=== PATIENT | male | born 1940 | race Caucasian/White ===

== ENCOUNTER 2018-08-31 17:55 | Emergency (ER) | payer OTHER ==
[~2018-08-31] VITALS: Ht 177.8 cm; Wt 74.8 kg
[2018-08-31] MEDS ORDERED: OMEPRAZOLE 20 M20 M1 PO (18:11)
[2018-08-31] MEDS ORDERED: PAXIL10 MG PO (18:11)
[2018-08-31] MEDS ORDERED: MULTI VITAMIN1 EACH PO (18:11)
[2018-08-31 19:31] LABS: HEMATOCRIT 41.2 % (42.0-52.0); HEMOGLOBIN 14.3 gm/dL (14.0-18.0); MCH 31.5 pg (26.0-34.0); MCHC 34.7 g/dL (28.0-37.0); PLATELET COUNT 182 thou/uL (150-400); RBC 4.52 mil/uL (4.50-6.00); RDW 13.4 % (10.5-14.5); WBC 7.3 thou/uL (4.0-11.0)
[2018-08-31 19:41] LABS: CREATININE 1.2 mg/dL (0.7-1.3)
[2018-08-31 20:09] LABS: ABSOLUTE NEUTROPHILS 5.3 thou/uL (1.4-8.2); ANISOCYTOSIS 1+; POLYCHROMASIA OCCASIONAL
[2018-08-31 20:28] VITALS: BP 161/95
== END 2018-08-31 20:33 | disposition home or self-care (01) ==
LOC: ER 17:55
PROVIDERS: Emergency Medicine
DX: L02.01 Cutaneous abscess of face (principal); K13.0 Diseases of lips; M81.0 Age-related osteoporosis without current pathological fracture; K21.9 Gastro-esophageal reflux disease without esophagitis; Z88.5 Allergy status to narcotic agent; Z88.8 Allergy status to other drugs, medicaments and biological substances

== ENCOUNTER → 2020-07-17 | Outpatient (CLI) | payer OTHER ==
[~2020-07-17] MED LIST: MULTI VITAMIN1 EACH PO; OMEPRAZOLE 20 M20 M1 PO; PAXIL10 MG PO
== END ==
LOC: NUC 08:16
PROVIDERS: ATTEND Internal Medicine
DX: I25.10 Atherosclerotic heart disease of native coronary artery without angina pectoris (principal); I42.8 Other cardiomyopathies; I47.2 Ventricular tachycardia

== ENCOUNTER 2021-01-03 22:12 | Inpatient (IN) | payer OTHER ==
[~2021-01-03] VITALS: Ht 177.8 cm; Wt 70.3 kg
[2021-01-03 22:24] VITALS: BP 148/88
[2021-01-03 22:38] LABS: ABSOLUTE NEUTROPHILS 4.8 thou/uL (1.4-8.2); BASOPHILS 0.6 % (0.0-2.0); EOSINOPHILS 4.7 % (0.0-3.0); HEMATOCRIT 43.2 % (42.0-52.0); HEMOGLOBIN 14.3 gm/dL (14.0-18.0); LYMPHOCYTES 16.3 % (24.0-44.0); MCH 30.9 pg (26.0-34.0); MCHC 33.2 g/dL (28.0-37.0); MCV 93.2 fL (80.0-100.0); MONOCYTES 11.7 % (1.0-8.0); PLATELET COUNT 177 thou/uL (150-400); POLYS 66.7 % (36.0-66.0); RBC 4.64 mil/uL (4.50-6.00); RDW 13.7 % (10.5-14.5); WBC 7.1 thou/uL (4.0-11.0)
[2021-01-03 22:46] LABS: ANION GAP 7 mmol/L (7-16); BUN 14 mg/dL (7-18); CALCIUM 8.5 mg/dL (8.5-10.1); CHLORIDE 104 mmol/L (98-107); CO2 30 mmol/L (21-32); CREATININE 1.1 mg/dL (0.7-1.3); GLUCOSE 101 mg/dL (74-106); POTASSIUM 3.7 mmol/L (3.5-5.1); SODIUM 141 mmol/L (136-145)
[2021-01-03 22:56] LABS: ALBUMIN 3.5 g/dL (3.4-5.0); LIPASE 99 U/L (73-393); SGOT 17 U/L (15-37); SGPT 18 U/L (16-63); TOTAL BILIRUBIN 0.6 mg/dL (0.2-1.0); TROPONIN-I <0.06 ng/mL (<0.06)
[2021-01-03 23:42] LABS: URINE BILIRUBIN NEGATIVE (Negative); URINE BLOOD NEGATIVE (Negative); URINE CLARITY CLEAR; URINE COLOR YELLOW; URINE GLUCOSE-RANDOM* NEGATIVE (Negative); URINE KETONES NEGATIVE (Negative); URINE LEUKOCYTES-REFLEX NEGATIVE (Negative); URINE NITRITE-REFLEX NEGATIVE (Negative); URINE PROTEIN (DIPSTICK) NEGATIVE (Negative); URINE SPECIFIC GRAVITY 1.015 (1.005-1.035); URINE UROBILINOGEN 0.2 E.U./dl (0.2-1.0)
[2021-01-04] MEDS ORDERED: OMEPRAZOLE40 MG PO
[2021-01-04] MEDS ORDERED: PAROXETINE HCL30 MG PO (00:01)
[2021-01-04 05:41] LABS: CHOLESTEROL 109 mg/dL (<200); HDL CHOLESTEROL 55 mg/dL (>40); LDL CHOLESTEROL 36 mg/dL (<100); TRIGLYCERIDE 90 mg/dL (<150); VLDL 18 mg/dL (<40)
[2021-01-04 05:42] LABS: SERUM ASSESSMENT Clear
[2021-01-04 06:07] VITALS: BP 108/57
[2021-01-04 06:32] VITALS: BP 101/56
--- NOTE | 2021-01-04 07:35 | EKG ---
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1940 Requested By: Rick Santos Order Number: [id number] MD: Will Gilmore Measurements Intervals [place] Rate: 79 P: 29 MT: 189 QRS: -16 QRSD: 104 T: 94 QT: 425 QTc: 488 Interpretive Statements Sinus rhythm Atrial premature complexes Probable LVH with secondary repol abnrm Anterior Q waves, possibly due to LVH Compared to ECG 02/11/1997 07:06:00 Atrial premature complex(es) now present Left ventricular hypertrophy now present Q waves now present Sinus bradycardia no longer present Sinus arrhythmia no longer present Electronically Signed On 01-04-2021 7:34:47 [employer] by Will Gilmore [email or web address] <ELECTRONICALLY SIGNED> By: Will Gilmore MD, [facility] 01/04/21 0734 19 19 Will Gilmore MD, [facility] /EPI
[2021-01-04] MEDS ORDERED: ACETAMINOPHEN325 M1 PO (11:32)
[2021-01-04] MEDS ORDERED: PEPCID40 MG PO (11:32)
[2021-01-04] MEDS ORDERED: ASPIR 8181 MG PO (11:32)
[2021-01-04 12:03] VITALS: BP 101/56
[2021-01-04 15:25] VITALS: BP 133/79
--- NOTE | 2021-01-04 16:23 | NUR ---
PT A&OX4, VSS, PAIN IN EPIGASTRIC AREA. PATIENT GIVEN TYLENOL. PATIENT C/O OF NAUSEA START OF SHIFT AND GIVEN ZOFRAN. PATIENT VOMITED AROUND LUNCH TIME, DOCTOR NOTIFIED. PATIENT C/O OF HEARTBURN. PATIENT INSTRUCTED NOT TO DRINK FROM STRAWS TO SEE IF HES TAKEN IN TOO MUCH AIR WHILE DRINKING. PATIENT SR ON MONITOR. NO SIGNS OF DISRESS OBSERVED. WILL CONTINUE TO MONITOR.
[2021-01-04 20:00] VITALS: BP 140/85
--- NOTE | 2021-01-05 01:45 | NUR ---
CARE ASSUMED 1900. PT ALERT AND ORIENTED VITALS STABLE. SR/SB ON THE MONITOR. PT WAS REPORTED TO HAVE ABDOMINAL PAIN. ACTIVE BOWEL SOUNDS AND REBOUND TENDERNESS NOTED ESPECIALLY IN BOTH RIGHT AND LEFT LOWER QUADRANT. PT NPO AWAITING GI CONSULT. PAIN, NAUSEA, OR VOMITING REPORTED . NO SON OR CHEST PAIN. PT IS A STAND BY ASSIST. WILL CONTINUE TO FOLLOW POC.
[2021-01-05 08:16] VITALS: BP 136/84
--- NOTE | 2021-01-05 09:10 | NUR ---
ASSESSMENT: CM REVIEWED CHART AND SPOKE WITH PATIENT. PT WAS ADMITTED DUE TO CHEST PAIN AND WAS RULED OUT. PT REPORTS LIVING IN A HOUSE ALONE. PT STATES HAVING 3 STEPS TO ENTER AND NO STEPS ONCE INSIDE. PT REPORTS BEING FULLY INDEPENDENT WITH ADLS AND AMBULATION. PT STATES HIS SON AND DAUGHTER BOTH LIVE WITHIN 5 MILES OF HIM AND CAN HELP HIM NEEDED. PT REPORTS NO HX OF HH OR SNF. PT IS REPORTING ABDOMINAL PAIN AND AWAITING A GI CONSULT AT THIS TIME. PT DOES NOT ANTICIPATE HAVING ANY NEEDS AT DISCHARGE. CM WILL CONTINUE TO FOLLOW TO ASSIST NEEDED.
[2021-01-05 15:52] VITALS: BP 147/97
--- NOTE | 2021-01-05 16:28 | NUR ---
Assumed pt care this am, Vs stable. No nausea or vomiting noted, was seen by GI, EGD done this am. Started on full liquids and is tolarated well. Was able to work with PT today and is able to be steady on his gait and can ambulate.
[2021-01-05 20:00] VITALS: BP 129/84
--- NOTE | 2021-01-06 06:47 | NUR ---
Assumed pt care at 1900. A/OX4,VSS.Denies pain on assessment. No N/V reported. Pt cleared by pt to be ad ita,yellow socks taken off. Pt ambulating to the bathroom w/o any problems. SA on telemetry,no c/o voiced. Encouraged to call as needed.
[2021-01-06 09:07] VITALS: BP 137/85
[2021-01-06] MEDS ORDERED: PROTONIX 20 MG20 M1 PO (09:26)
--- NOTE | 2021-01-06 10:09 | NUR ---
ENTERED PT. ROOM AT 0924, INTRODUCED ROLE OF OT. PT. DECLINES FORMAL OT RIVKAAL, STATES HE FEELS HE IS AT HIS NORMAL AND HAS BEEN UP AD JENNA SINCE P.Juan TUTTLE YESTERDAY.
--- NOTE | 2021-01-06 11:05 | NUR ---
Assumed pt care this am, vs stable and is stready on his gait and is able to ambulate on his own. Runs sinus arrythmia on the tele. No nausea, vomiting or pain noted. Dc orders given, intructions and medication education givne to pt. IV removed. Awaiting son to garbage pick up man pt.
--- NOTE | 2021-01-08 17:09 | PATH ---
[facility] [address] [place] [address] PATHOLOGY RPT PROCEDURE Name: HILARY MCGHEE Room #: 450-P DIS IN M.R.#: [id number] Admission: 01/04/21 Date of : 36 Discharge: 01/06/21 Report #: [id number] Path Case #: [id number] L[facility] Accession Number: [id number] . 01 Material submitted: . PART A: duodenum - DUODENUM R/O CELIAC PART B: pyloric antrum - ANTRUM R/O EOSINOPHILIC ESOPHAGITIS PART C: esophagus - DISTAL ESOPHAGUS R/O EOSINOPHILIC ESOPHAGITIS. Modifiers: distal PART D: esophagus - MID ESOPHAGUS R/O EOSINOPHILIC ESOPHAGITIS. Modifiers: mid . 01 Clinical history: . CHEST PAIN, N/V GERD, HIATAL HERNIA, GASTRITIS . 02 Diagnosis: A. Small "duodenum", endoscopic biopsy: - Duodenal mucosa without significant pathologic alteration. - Negative for villous blunting, active inflammation, dysplasia, and malignancy. . B. Stomach "antrum", endoscopic biopsy: - Gastric antral and oxyntic mucosa with features of early reactive gastropathy, arising in a background of moderate chronic gastritis. - Negative for active inflammation, intestinal metaplasia, dysplasia, and malignancy. - Negative for Helicobacter pylori. . C. Esophagus "distal", endoscopic biopsy: - Hyperplastic esophageal squamous mucosa with reactive features, suggestive of reflux esophagitis. - Negative for significantly increased eosinophils, intestinal metaplasia, dysplasia, and malignancy. . D. Esophagus "mid", endoscopic biopsy: - Mildly hyperplastic esophageal squamous mucosa with reactive features. - Negative for increased intraepithelial eosinophils, intestinal metaplasia, dysplasia, and malignancy. (MLK:tim; 01/08/2021) QMS 01/08/2021 1632 Local . 02 Electronically signed: . Holger Sarabia MD, Pathologist NPI- [id number] . 01 Gross description: . [facility] [address] [place] [address] PATHOLOGY RPT PROCEDURE Name: HILARY MCGHEE Lorenza Room #: 450-P DIS IN M.R.#: [id number] Admission: 01/04/21 Date of : 36 Discharge: 01/06/21 Report #: [id number] Path Case #: [id number] A. The specimen is received in formalin, labeled "Hilary Mcghee, duodenum, R/O celiac". Received are four segments of pale luna soft tissue ranging in size from 0.2 to 0.3 cm in maximum dimensions. The specimen is submitted entirely in cassette A1. . B. The specimen is received in formalin, labeled "Hilary Taz, biopsy antrum, R/O eosinophilic esophagitis". Received are two segments of pale luna soft tissue ranging in size from 0.3 to 0.5 cm in maximum dimensions. The specimen is submitted entirely in cassette B1. . C. The specimen is received in formalin, labeled "Hilary Townley, distal esophagus, R/O eosinophilic esophagitis". Received are three segments of pale luna soft tissue ranging in size from 0.2 to 0.3 cm in maximum dimensions. The specimen is submitted entirely in cassette C1. . D. The specimen is received in formalin, labeled "Hilary Taz, mid esophagus, R/O eosinophilic esophagitis". Received are two segments of pale luna soft tissue measuring 0.4 cm each in maximum dimensions. The specimen is submitted entirely in cassette D1. (CAA; 01/07/2021) QAC/QAC 01/07/2021 1130 Local . 02 Microscopic: . Immunohistochemical stain results (properly controlled): . Helicobacter pylori (B1) - Negative for organisms. . (MLK:tim; 01/08/2021) . 02 Pathologist provided ICD-10: K29.50, K31.9, K22.9, R11.2, R07.9 . 02 CPT . 376965, 627751, [id number], [id number], [id number] Specimen Comment: A courtesy copy of this report has been sent to [phone], [phone] Specimen Comment: [phone], Specimen Comment: Report sent to ,DR TOLBERT / DR POST Performed at: [address], [place] [id number] MD Karlos Garcia MD Phone: [phone] Performed at: [address] [id number] MD Taylor Orozco MD Phone: [phone]
== END 2021-01-06 11:36 | disposition home or self-care (01) | DRG 392 ==
LOC: ER 22:12 → EROBS 01-04 00:09 → 4W 01-04 00:09
PROVIDERS: Emergency Medicine; Nurse Practitioner Family; ADMIT Internal Medicine; ATTEND Internal Medicine
PROC: 0DB18ZX Excision of Upper Esophagus, Via Natural or Artificial Opening Endoscopic, Diagnostic (ICD-10-PCS; principal; 2021-01-05)
PROC: 0DB38ZX Excision of Lower Esophagus, Via Natural or Artificial Opening Endoscopic, Diagnostic (ICD-10-PCS; principal; 2021-01-05)
PROC: 0DB98ZX Excision of Duodenum, Via Natural or Artificial Opening Endoscopic, Diagnostic (ICD-10-PCS; principal; 2021-01-05)
PROC: 0DB68ZX Excision of Stomach, Via Natural or Artificial Opening Endoscopic, Diagnostic (ICD-10-PCS; principal; 2021-01-05)
DX: K29.70 Gastritis, unspecified, without bleeding (principal); K21.9 Gastro-esophageal reflux disease without esophagitis; F32.9 Major depressive disorder, single episode, unspecified; R07.9 Chest pain, unspecified; K22.2 Esophageal obstruction; M81.0 Age-related osteoporosis without current pathological fracture; K90.0 Celiac disease; K44.9 Diaphragmatic hernia without obstruction or gangrene; Z20.822 Contact with and (suspected) exposure to COVID-19; Z79.899 Other long term (current) drug therapy; Z88.5 Allergy status to narcotic agent; Z88.8 Allergy status to other drugs, medicaments and biological substances
CPT/HCPCS: 10045; 62110; 62900; 70005

== ENCOUNTER → 2021-05-11 | Outpatient (CLI) | payer OTHER ==
[~2021-05-11] MED LIST changes: +ACETAMINOPHEN325 M1 PO; +ADVIL200 M3 PO; +ASPIR 8181 MG PO; +BENADRYL25 MG PO; +FAMOTIDINE 40 M40 M1 PO; +OMEPRAZOLE40 MG PO; +PAROXETINE HCL30 MG PO; +PEPCID40 MG PO; +PROTONIX 20 MG20 M1 PO
[2021-05-11 12:03] LABS: URINE BILIRUBIN NEGATIVE (Negative); URINE BLOOD NEGATIVE (Negative); URINE CLARITY CLEAR; URINE COLOR YELLOW; URINE GLUCOSE-RANDOM* NEGATIVE (Negative); URINE KETONES NEGATIVE (Negative); URINE LEUKOCYTES-REFLEX NEGATIVE (Negative); URINE NITRITE-REFLEX NEGATIVE (Negative); URINE PROTEIN (DIPSTICK) NEGATIVE (Negative); URINE SPECIFIC GRAVITY >= 1.030 (1.005-1.035); URINE UROBILINOGEN 0.2 E.U./dl (0.2-1.0)
[2021-05-11 12:04] LABS: HEMATOCRIT 43.7 % (42.0-52.0); HEMOGLOBIN 14.7 gm/dL (14.0-18.0); MCH 31.5 pg (26.0-34.0); MCHC 33.6 g/dL (28.0-37.0); MCV 93.9 fL (80.0-100.0); RBC 4.65 mil/uL (4.50-6.00); RDW 13.3 % (10.5-14.5); WBC 5.6 thou/uL (4.0-11.0)
[2021-05-11 12:10] LABS: ALBUMIN 3.3 g/dL (3.4-5.0); CALCIUM 8.2 mg/dL (8.5-10.1); CREATININE 1.1 mg/dL (0.7-1.3); POTASSIUM 4.3 mmol/L (3.5-5.1)
[2021-05-11 12:11] LABS: INR 1.02; PROTIME 11.1 Seconds (10.5-12.1)
== END ==
LOC: PAC 10:39
PROVIDERS: ATTEND Orthopaedic Surgery
DX: Z01.812 Encounter for preprocedural laboratory examination (principal)

== ENCOUNTER 2021-05-18 07:22 | Inpatient (IN) | payer OTHER ==
[2021-05-18] VITALS (10 sets, daily range): BP systolic 98–158; BP diastolic 66–87
[~2021-05-18] VITALS: Ht 172.7 cm; Wt 72.6 kg
--- NOTE | 2021-05-18 14:20 | NUR ---
ASSESSMENT: CM REVIEWED CHART AND ATTEMPTED TO MEET WITH PATIENT AT THE BEDSIDE. PT IS ASLEEP. PTS DAUGHTER LOIS IS AT THE BEDSIDE. CM DISCUSSED ROLE. PT LIVES IN A HOUSE BY HIMSELF. PT HAS TWO STEPS TO ENTER AND NO STEPS HE HAS TO USE ONCE INSIDE. PTS DAUGHTER REPORTS THAT SHE AND HER SIBLINGS (3 TOTAL CHILDREN) WILL BE ROTATING HELPING TAKE CARE OF HIM AT DISCHARGE. SHE REPORTS THEY ALL LIVE VERY CLOSE TO PATIENT. PT NORMALLY IS INDEPENDENT WITH AND AMBULATION. DAUGHTER REPORTS PT HAS GRAB BAR IN THE SHOWER. PT HAS NOT HAD HH IN THE PAST OR BEEN TO SNF. AWAITING PT TO EVAL PATIENT BUT SHE REPORTS THEY DO NOT HAVE OUTPATIENT THERAPY ARRANGED AT THIS TIME. CM WILL CONTINUE TO FOLLOW TO ASSIST NEEDED. FAMILY HOPEFUL PT WILL BE ABLE TO DISCHARGE HOME WITH ASSIST OF FAMILY.
--- NOTE | 2021-05-18 19:42 | NUR ---
Recieved report from SAMARA Rajan patient arrived to floor to room 444. On 2L nasal canula and doesn't wear it at home. Daughter at bed side. Patient too drowsy to work with PT, they will see patient tomorrow. Pain medication was given per JAN. Bed alarm on, call light with in reach, will continue to moniotor.
--- NOTE | 2021-05-19 04:00 | NUR ---
ASSUMED PT CARE AT 1900.PT WAS OBSERVED LYING ON HIS BED WITH HIS EYES CLOSED.PT LATER WOKE UP DURING SHIFT REPORT.PAIN MANAGED WITH PO MED.HEMOVAC IN PLACE,EMPTIED 100CC SO FAR.PT ON 2L/NC FOR SLEEP DUE TO SLEEP APNEA.PT CURYUNG.DRSG DRY AND INTACT.HIP AND FALL PRECAUTIONS MAINTAINED.IV ABX COMPLETED.CALL LIGHT WITHIN REACH.
[2021-05-19 04:37] VITALS: BP 103/64
[2021-05-19 05:32] LABS: BASOPHILS 0.1 % (0.0-2.0); HEMOGLOBIN 11.4 gm/dL (14.0-18.0)
[2021-05-19 05:34] LABS: HEMATOCRIT 34.2 % (42.0-52.0); LYMPHOCYTES 4.5 % (24.0-44.0); MCH 31.5 pg (26.0-34.0); MCHC 33.4 g/dL (28.0-37.0); MCV 94.3 fL (80.0-100.0); MONOCYTES 10.5 % (1.0-8.0); PLATELET COUNT 135 thou/uL (150-400); POLYS 84.9 % (36.0-66.0); RBC 3.63 mil/uL (4.50-6.00); RDW 13.4 % (10.5-14.5); WBC 9.4 thou/uL (4.0-11.0)
[2021-05-19 05:57] LABS: ALBUMIN 2.6 g/dL (3.4-5.0); CALCIUM 7.5 mg/dL (8.5-10.1); CREATININE 1.3 mg/dL (0.7-1.3); MAGNESIUM 1.8 mg/dL (1.8-2.4); POTASSIUM 4.8 mmol/L (3.5-5.1); TOTAL BILIRUBIN 0.9 mg/dL (0.2-1.0); TOTAL PROTEIN 5.7 g/dL (6.4-8.2)
--- NOTE | 2021-05-19 07:50 | O ---
[facility] [place] [address] [place] [address] OPERATIVE REPORT Name: HILARY VILLA Room #: 444-P ADM IN M.R.#: [id number] Admission: 05/18/21 Attend Phys: Rick Prince MD Discharge: Date of : 36 Report #: [id number] THIS REPORT FOR: cc: Deb Pollock MD, Michelle R. MD Clymer, David J. MD ~ DOC #: [id number] Rick Prince MD DATE OF SERVICE: 05/18/2021 PREOPERATIVE DIAGNOSIS: End-stage degenerative arthritis, right hip. POSTOPERATIVE DIAGNOSIS: End-stage degenerative arthritis, right hip. PROCEDURE: Right total hip replacement. SURGEON: Rick Prince MD INDICATIONS: This still active, fully independent 81-year-old gentleman complains of progressive right hip pain. Clinical exam and x-rays confirm moderate degenerative arthritis. He has tried conservative measures without much benefit. The patient and family have decided to go ahead with right total hip replacement. DESCRIPTION OF PROCEDURE: The patient was taken to the operating room where he was placed under general anesthesia. Prophylactic intravenous antibiotics were administered. He was turned to the left lateral decubitus position. The right hip, thigh and leg were meticulously prepped and draped. A slightly curving posterolateral skin incision was made exposing the posterior aspect of the hip joint. The short external rotators and capsule were taken down and preserved and tagged with several #1 FiberWire sutures. The hip was dislocated posteriorly. Moderately severe degenerative change on the femoral head and acetabulum was noted. A femoral neck osteotomy was performed. The Mata and Nephew hip system was utilized. The femur seemed best suited for a size 14 femoral stem. Attention was directed to the acetabulum, which was reamed sequentially gradually advancing to a 54 mm reamer. The Mata and Nephew size 54 three-hole hemispherical shell with StikTite coating was then inserted. This was placed in alignment with his true acetabulum, which positioned this in about 45 degrees off of vertical and 20 degrees of anteversion. It was impacted into place and seated nicely and appeared to be secure. In addition, three cancellous screws were placed through the apical holes engaging good periacetabular bone adding to stability. A 36 mm polyethylene liner was then inserted placing the 20-degree elevated rim at about the 10 o'clock posterior position. It seated nicely and appeared to be secure. The size 14 high offset Synergy femoral stem was then inserted positioning this in about 20 degrees of anteversion. A trial reduction was performed and the hip seemed best suited for [address] [address] OPERATIVE REPORT Name: HILARY VILLA FRASER Room #: 444-[facility] IN ..#: [id number] Admission: 05/18/21 Attend Phys: Rick Prince MD Discharge: Date of : 36 Report #: [id number] a +8 mm neck length. This resulted in satisfactory alignment, range of motion, stability and leg length. The permanent size 36 head with a +8 mm neck length sleeve was selected. This was impacted onto the Viera taper neck. The hip was reduced. Alignment, range of motion, stability and leg lengths were once again assessed and felt to be satisfactory. Good hemostasis was confirmed. The capsule and short external rotators were then repaired back to bone using #1 FiberWire sutures. This resulted in additional satisfactory joint stability. A single Hemovac was left in the wound exiting through a separate stab incision. The fascia was closed with multiple #1 Vicryl sutures. The subcutaneous tissues were closed with 0 Monocryl. The skin was closed with skin gisela. A sterile dressing was applied. The patient was awakened and returned to recovery room in good condition. Rick Prince MD DJC/KDA <ELECTRONICALLY SIGNED> By: Rick Prince MD 05/19/21 0750 1029 1137 Rick Prince MD /nt
[2021-05-19 08:15] VITALS: BP 111/70
[2021-05-19 13:08] LABS: HEMATOCRIT 33.8 % (42.0-52.0); HEMOGLOBIN 11.2 gm/dL (14.0-18.0); MCH 31.7 pg (26.0-34.0); MCHC 33.3 g/dL (28.0-37.0); MCV 95.3 fL (80.0-100.0); RBC 3.54 mil/uL (4.50-6.00); RDW 13.3 % (10.5-14.5); WBC 10.7 thou/uL (4.0-11.0)
--- NOTE | 2021-05-19 15:07 | NUR ---
ON-GOING ASSESSMENT: CM REVIEWED CHART. PT CONTINUES TO PROGRESS. PT WILL CONTINUE TO WORK WITH THERAPIES AND POSSIBLE DISCHARGE ON TUESDAY OR TUESDAY. PER FAMILY THEY PREFER PATIENT BE ABLE TO LEAVE TUESDAY. CM WILL NEED A WALKER AT TIME OF DISCHARGE AND HAS NO PREFERENCE OF [employer]. MARYCHUY CONTACTED RHONA AT [employer] [facility] AND PT CAN BE ISSUED A WALKER PRIOR TO DISCHARGE BY PHYSICAL THERAPY. CM WILL NOTIFY PT AT TIME OF DISCHARGE.
[2021-05-19 15:53] VITALS: BP 124/76
--- NOTE | 2021-05-19 20:06 | NUR ---
Patient alert and orinted x4, on room air, pain medications given per MAR, tolerating diet well, up in contreras with PT and worked with OT today, drained removed and patient tolerated well, vital stable, afbriele, up with SBA with walker and gait belt. Call light with in reach, bed alarm on, will continue to monitor.
[2021-05-19 20:30] VITALS: BP 107/74
--- NOTE | 2021-05-20 04:25 | NUR ---
ASSUMED PT CARE AT 1900.PTC/O PAIN TO HIS R HIP,MANAGED WITH MED.PT REQUESTED FOR SLEEPING AID,[employer] MEMBER ON DUTY NOTIFIED.ORDER NOTED AND CARRIED OUT.DRSG TO HIS R HIP C/D/I.PT USING URINAL AT BEDSIDE,GOOD OUTPUT NOTED.PT ABLE TO MAKE HIS NEEDS KNOWN.CALL LIGHT WITHIN REACH.
[2021-05-20 06:02] LABS: HEMATOCRIT 29.9 % (42.0-52.0); HEMOGLOBIN 9.9 gm/dL (14.0-18.0); MCH 31.8 pg (26.0-34.0); MCHC 33.2 g/dL (28.0-37.0); MCV 95.7 fL (80.0-100.0); RBC 3.13 mil/uL (4.50-6.00); RDW 13.3 % (10.5-14.5); WBC 6.9 thou/uL (4.0-11.0)
[2021-05-20 07:42] VITALS: BP 121/70
--- NOTE | 2021-05-20 14:47 | NUR ---
Patient alert and orinted x4, on room air, up with SBA with walker and gait belt, tolerating diet well, pain medications given per MAR, vitals stable, and afbreile. Call light with in reach, bed/chair alarm on, will continue to monitor.
--- NOTE | 2021-05-20 15:20 | NUR ---
ON-GOING ASSESSMENT: CM REVIEWED CHART AND SPOKE WITH PT. PLANS ARE FOR PATIENT TO LIKELY DISCHARGE HOME TOMORROW WITH FAMILY SUPPORT AND HOME HEALTH. CM DISCUSSED HOME HEALTH WITH PATIENT AND HE IS AGREEABLE AND HAS NO PREFERENCE OF COMPANY. CM SENT REFERRAL TO [facility] AND NOTIFIED LIASON. CM ALSO SPOKE WITH LIASON FROM [facility] WHO REPORTS A WALKER CAN BE ISSUED TO PATIENT PRIOR TO DISCHARGE. CM PROVIDED [facility] LIASON WITH SCRIPT. CM WILL CONTINUE TO FOLLOW TO ASSIST NEEDED.
[2021-05-20 21:20] VITALS: BP 118/76
[2021-05-21 02:45] VITALS: BP 131/76
[2021-05-21 05:17] LABS: HEMATOCRIT 32.6 % (42.0-52.0); HEMOGLOBIN 11.1 gm/dL (14.0-18.0); MCH 32.1 pg (26.0-34.0); MCHC 34.1 g/dL (28.0-37.0); MCV 94.1 fL (80.0-100.0); RBC 3.47 mil/uL (4.50-6.00); RDW 13.2 % (10.5-14.5); WBC 8.3 thou/uL (4.0-11.0)
--- NOTE | 2021-05-21 06:11 | NUR ---
ASSUMED PT CARE TA 1899.PT C/O PAIN TO HIS R HIP,MANAGED WITH MED.URINAL AT BEDSIDE.PT WAS GOTTEN UP PER HIS REQUEST TO WALK AROUND IN THE [address] WAY EARLY THIS AM BECAUSE HE WAS RESTLESS BY ANOTHER STAFF.PT BECAME BECAME WEAK AND UNABLE TO COPLETE A LAP.PT WAS PUT IN A WC AND TAKEN BACK TO ROOM.PT WAS OBSERVED TO BE ANXIOUS AND CONFUSED.PT STATED "I AM GOING CRAZY" PT STATED THAT HE DOES NOT KNOW WHAT WAS HAPPENING TO HIM.PT WAS ANXIOUS AND DIAPHORETIC.VS AND BG WERE OBTAINED STABLE.PT PASSED OUT ONETIME AND CAME TO AFTER STERNAL CHEST RUB.PT C/O ABD PAIN AND TENDERNESS.BLADDER SCAN SHOWED 60ML.A AND P MECHANIC AND 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
[2021-05-21 07:36] LABS: ANION GAP 11 mmol/L (7-16); BUN 22 mg/dL (7-18); CALCIUM 8.4 mg/dL (8.5-10.1); CHLORIDE 105 mmol/L (98-107); CO2 26 mmol/L (21-32); CREATININE 1.3 mg/dL (0.7-1.3); GLUCOSE 106 mg/dL (74-106); POTASSIUM 4.6 mmol/L (3.5-5.1); SODIUM 142 mmol/L (136-145); TROPONIN-I <0.06 ng/mL (<0.06)
[2021-05-21 08:05] VITALS: BP 131/82
--- NOTE | 2021-05-21 10:51 | NUR ---
ASSUMED PT CARE THIS AM. PT IS ALERT & ORIENTED X4. PT HAS IV SITE ON L FA SALINE LOCKED. PT [place]. PT IS UP WITH ASSIST X1 WITH WALKER AND GAITBELT. PT HAS JAMILA DRESSING, BILATERAL THIGH HIGH PHYLLIS FLORES, QIANA. PT STATED HE IS PASSING GAS BUT NO BM YET. GIVEN NEW ORDERED MEDICATION PER DR NEWBY. PT FAMILY AT THE BEDSIDE. PT WORKING WITH PHYSICAL THERAPY TODAY. WILL CONITNUE TO MONITOR PT. FOLLOW POC.
--- NOTE | 2021-05-21 13:36 | NUR ---
ON-GOING ASSESSMENT: CM REVIEWED CHART AND SPOKE WITH PATIENT. [facility] IS FOLLOWING AND CAN ACCEPT PATIENT FOR DISCHARGE. LIASON FROM [facility] STATING SHE WILL GATHER THE INFORMATION NEEDED. PTS WALKER WAS DELIVERED TO HIS ROOM BY [facility]. PTS DAUGHTER LOIS IS IN THE ROOM AND REPORTS SHE WILL TRANSPORT HIM HOME. PT REPORTS NO FURTHER NEEDS FROM CM.
[2021-05-21 15:18] VITALS: BP 124/83
[2021-05-21 19:49] VITALS: BP 125/76
--- NOTE | 2021-05-22 04:05 | NUR ---
PT IS A/O X4 AND IS UP WITH ASSISTANCE USING WALKER AND GB. IS PLEASANT AND COOPERATIVE. C/O INDIGESTION. PRN INDIGESTION MEDICATION GIVEN DIRECTED. PT WALKED AROUND THE 4TH FLOOR ONCE FOR APPROXIMATELY 5 FULL MINUTES. DENIES PAIN OR DISCOMFORT. MEDICATIONS GIVEN PER MAR. VSS. FALL PRECAUTIONS IN PLACE, CALL LIGHT IS WITHIN REACH. DRSG TO RIGHT HIP IS C/D/I. VOIDS PER URINAL AT THE BEDSIDE. NO BM THIS SHIFT. C/O CONSTIPATION. GIVEN SCHEDULED STOOL SOFTNERS. WILL CONTINUE TO MONITOR.
[2021-05-22 04:51] VITALS: BP 122/74
[2021-05-22 07:30] VITALS: BP 119/74
--- NOTE | 2021-05-22 10:32 | NUR ---
Assumed care of pt at 0700. Pt a&ox4. Dressing c/d/i. Pt states he has not had a bowel movement. Enema ordered. Pt has had 2 bowel movements so far. Pt nauseous. Antiemetic administered. Up SBA with gait-belt and walker. KUB ordered. Call light within reach. Fall precautions in place. Will continue to monitor.
[2021-05-22 10:51] LABS: CALCIUM 8.8 mg/dL (8.5-10.1); CREATININE 1.3 mg/dL (0.7-1.3); MAGNESIUM 2.2 mg/dL (1.8-2.4); POTASSIUM 4.2 mmol/L (3.5-5.1)
--- NOTE | 2021-05-22 13:04 | NUR ---
ON-GOING ASSESSMENT: CM REVIEWED CHART. PT CONTINUES TO COMPLAIN OF ABDOMIAL PAIN AND HAS NOT YET HAD A GOOD BOWEL MOVEMENT. GI HAS BEEN CONSULTED TO SEE PATIENT. ONCE PATIENT IS MEDICALLY STABLE FOR DISCHARGE [facility] CAN ACCEPT. PLEASE FAX DISCHARGE ORDERS TO [facility] AT [phone]. PT HAS WALKER THAT WAS DELIVERED TO HIS BEDSIDE FOR HOME USE. PTS FAMILY WILL ASSIST HIM AT HOME.
[2021-05-22 14:21] VITALS: BP 119/74
[2021-05-22 15:40] VITALS: BP 117/77
[2021-05-22 20:50] VITALS: BP 125/80
--- NOTE | 2021-05-23 00:34 | NUR ---
ASSUMED PT CARE AT 1900. PT WAS LYING IN BED, INTRODUCED SLEF TO PT. PT WAS ALERT AND ORIENTED. PT WAS INTERACTIVE AND PLEASANT. PT WAS PLEASED WITH CURRENT BOWEL MOVEMENT REGIMENT. PT COMPLAINED OF TENDERNESS AT LLQ DURING ASSESSMENT. NO OTHER VISIBLE SIGNS OF DISTRESS WAS NOTED. BED ON LOWEST LOCKED POSITION WITH BED ALARM ON AND CALL LIGHT WITHIN REACH.
[2021-05-23 08:10] VITALS: BP 128/81
--- NOTE | 2021-05-23 10:09 | NUR ---
Assumed care of pt at 0700. Pt a&ox4. Dressing c/d/i. No nausea this am. SBA to bedside commode. Possible d/c to home with home health today. Family at bedside. Call light within reach. Will continue to monitor.
--- NOTE | 2021-05-23 13:02 | NUR ---
GIN ADVISED THAT MEDICAL TEAM IS WAITING FOR CLEARANCE FROM GI. GIN ADVISED KEYON Valiente/ [facility] LOZADA
[2021-05-23 16:31] VITALS: BP 129/81
[2021-05-23 20:00] VITALS: BP 118/73
--- NOTE | 2021-05-24 05:21 | NUR ---
PT TRANSFERRING TO BEDSIDE COMMODE WITH ASSIST AND IS TOLERATING WELL. DENIES NEED FOR PAIN MEDICATION. PLAN FOR DISCHARGE HOME WITH HOME HEALTH 05/24. RESTING COMFORTABLY. NO NEEDS VOICED. CALL LIGHT WITHIN REACH. FREQUENT OBSERVATION.
[2021-05-24 05:23] LABS: ABSOLUTE NEUTROPHILS 3.6 thou/uL (1.4-8.2); BASOPHILS 0.5 % (0.0-2.0); EOSINOPHILS 9.8 % (0.0-3.0); HEMOGLOBIN 9.9 gm/dL (14.0-18.0); LYMPHOCYTES 13.9 % (24.0-44.0); MCH 32.1 pg (26.0-34.0); MCHC 34.2 g/dL (28.0-37.0); MCV 93.8 fL (80.0-100.0); MONOCYTES 14.1 % (1.0-8.0); PLATELET COUNT 173 thou/uL (150-400); POLYS 61.7 % (36.0-66.0); RDW 13.2 % (10.5-14.5); WBC 5.8 thou/uL (4.0-11.0)
[2021-05-24 05:42] LABS: ALBUMIN 2.5 g/dL (3.4-5.0); CALCIUM 8.1 mg/dL (8.5-10.1); CREATININE 1.1 mg/dL (0.7-1.3); MAGNESIUM 2.5 mg/dL (1.8-2.4); PHOSPHORUS 3.8 mg/dL (2.5-4.9); POTASSIUM 4.1 mmol/L (3.5-5.1); TOTAL BILIRUBIN 0.9 mg/dL (0.2-1.0); TOTAL PROTEIN 5.8 g/dL (6.4-8.2)
[2021-05-24 08:45] VITALS: BP 128/83
--- NOTE | 2021-05-24 10:10 | NUR ---
Assumed care of pt at 0700. Pt a&ox4. [place]BA. Dressing c/d/i. Pain controlled. Pt ambulating the halls. KUB ordered today. Possible D/C gome with HH today if cleared by hospital doctor. Family at bedside. Call light within reach. Will continue to monitor.
[2021-05-24] MEDS ORDERED: CALTRATE-600 W1 EACH PO (11:57)
[2021-05-24] MEDS ORDERED: XARELTO10 MG PO (11:57)
[2021-05-24] MEDS ORDERED: MIRALAX17 GM PO (11:57)
[2021-05-24] MEDS ORDERED: MELATONIN5 M1 PO (11:57)
[2021-05-24] MEDS ORDERED: SENNA8.6 MG PO (11:57)
[2021-05-24 12:25] VITALS: BP 119/74
--- NOTE | 2021-05-24 13:23 | NUR ---
GIN faxed HH order to [facility] fax [phone] and informed liasion Rita of weekend D/C. No further needs identified at this time.
== END 2021-05-24 13:31 | disposition home health service (06) | DRG 469 ==
LOC: PRE → TBA 07:22 → 4S 07:22 → TBA 11:08 → PRE 12:08 → 4S 12:54 → PRE 13:13 → 4S 05-24 13:31
PROVIDERS: Internal Medicine; Nurse Practitioner; Nurse Practitioner Family; ADMIT Orthopaedic Surgery; ATTEND Orthopaedic Surgery
PROC: 0SR90JA Replacement of Right Hip Joint with Synthetic Substitute, Uncemented, Open Approach (ICD-10-PCS; principal; 2021-05-18)
DX: M16.11 Unilateral primary osteoarthritis, right hip (principal); E43 Unspecified severe protein-calorie malnutrition; K56.7 Ileus, unspecified; K21.9 Gastro-esophageal reflux disease without esophagitis; M81.0 Age-related osteoporosis without current pathological fracture; F32.9 Major depressive disorder, single episode, unspecified; F41.9 Anxiety disorder, unspecified; N18.30 Chronic kidney disease, stage 3 unspecified; D69.6 Thrombocytopenia, unspecified; M54.5 Low back pain; K59.00 Constipation, unspecified; D64.9 Anemia, unspecified; Z88.1 Allergy status to other antibiotic agents; Z88.8 Allergy status to other drugs, medicaments and biological substances; Z88.5 Allergy status to narcotic agent; Z85.828 Personal history of other malignant neoplasm of skin; Z90.49 Acquired absence of other specified parts of digestive tract; Z98.42 Cataract extraction status, left eye; Z98.41 Cataract extraction status, right eye; Z68.24 Body mass index [BMI] 24.0-24.9, adult
CPT/HCPCS: 10102; 50010; 50101; 50382; 50414; 51412; 53000; 53367; 56521; 56525; 56530; 57095; 57103; 70005